=== PATIENT | male | born 1995 | race Hispanic/Latino ===

== ENCOUNTER 2025-11-11 06:20 | Emergency (ER) | payer SELFPAY ==
[2025-11-11 06:35] VITALS: BP 139/100
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
[2025-11-11] MEDS: MOTRIN 600 MG PO (06:46)
[2025-11-11] MEDS: TYLENOL 1000 MG PO (07:52)
[2025-11-11 08:44] VITALS: BP 134/87
== END 2025-11-11 08:45 | disposition home or self-care (01) ==
LOC: EMR 06:20
PROVIDERS: EMERGENCY PHYSICIAN Emergency Medicine
DX: S93.402A Sprain of unspecified ligament of left ankle, initial encounter (principal); V64.5XXA Driver of heavy transport vehicle injured in collision with heavy transport vehicle or bus in traffic accident, initial encounter; F17.200 Nicotine dependence, unspecified, uncomplicated
CPT/HCPCS: 99283; 73590; 73610; 73630